=== PATIENT | female | born 1965 | race Caucasian/White ===

== ENCOUNTER 2021-04-25 15:21 | Inpatient (IN) | payer OTHER ==
[~2021-04-25] VITALS: Ht 152.4 cm; Wt 48.3 kg
[~2021-04-25 15:21] MED LIST: ASPIR 8181 MG PO; COSENTYX P150 MG/1 M SC; HYDROCODON-ACE1 EAC2 PO; IMDUR 30MG TABL30 MG PO; LEVOTHYROXINE25 MCG PO; LIPITOR80 MG PO; LOPRESSOR25 MG PO; METHOTREXA25 MG/1 M6 SC; NEURONTIN400 MG PO; NITROSTAT0.4 MG SL; PLAVIX75 MG PO; PROAIR DIGIHAL90 MCG INH; PROTONIX 40MG T40 MG PO; TOPROL XL 25MG25 MG PO; VIIBRYD40 MG PO; ZESTRIL5 MG PO; ZOCOR20 MG PO
[2021-04-25 16:54] LABS: BASOPHIL 0.6 % (0-2); EOSINOPHIL 0.9 % (0-5); HCT 53.6 % (37.0-47.0); HGB 17.7 g/dl (12.5-16.0); LYMPHOCYTE 16.3 % (15-48); MCV 96.9 fL (78.0-100.0); MONOCYTE 10.2 % (0-12); MPV 9.5 fL (6.0-9.5); NEUTROPHIL 71.5 % (41-80); NRBC 0; PLT 340 K/uL (150-400); RBC 5.53 M/uL (4.20-5.40); RDW 14.1 % (11.5-14.0); WBC 17.8 K/uL (4.0-10.5)
[2021-04-25 16:56] LABS: INR 1.02 (0.9-1.2); PROTHROMBIN TIME 12.8 SECONDS (11.8-13.4)
[2021-04-25 16:57] LABS: PTT 24.8 SECONDS (24.4-34.7)
[2021-04-25 17:12] LABS: ALBUMIN 4.1 g/dL (3.4-5.0); BILIRUBIN - TOTAL 0.4 mg/dL (0.2-1.0); BUN/CREAT RATIO (CALC) 20.3 RATIO; CREATININE 0.59 mg/dL (0.51-0.95); GLOBULIN (CALCULATION) 4.4 g/dL; POTASSIUM 3.7 mmol/L (3.5-5.1); TOTAL PROTEIN 8.5 g/dL (6.4-8.2)
[2021-04-25 17:33] LABS: BILIRUBIN 1+ mg/dL (NEGATIVE); BLOOD 1+ Ery/uL (NEGATIVE); COLOR YELLOW (YELLOW); GLUCOSE (U) NORMAL (NORMAL); LEUKOCYTES NEGATIVE Leu/uL (NEGATIVE); NITRITE NEGATIVE (NEGATIVE); PROTEIN TRACE (LOW) mg/dL (NEGATIVE); SPECIFIC GRAVITY 1.025 (1.001-1.030)
[2021-04-25 17:34] LABS: CLARITY SLIGHTLY HAZY (CLEAR)
[2021-04-25 17:42] LABS: LACTIC ACID 0.5 mmol/L (0.4-1.9)
[2021-04-25 17:53] LABS: BACTERIA 1+; MUCOUS MODERATE; URINARY WBC RARE
[2021-04-26 00:36] LABS: LACTIC ACID 0.3 mmol/L (0.4-1.9)
[2021-04-26 06:21] LABS: BASOPHIL 0.7 % (0-2); EOSINOPHIL 1.5 % (0-5); HCT 48.8 % (37.0-47.0); HGB 15.8 g/dl (12.5-16.0); LYMPHOCYTE 28.2 % (15-48); MCH 31.5 pg (25.0-31.0); MCHC 32.4 g/dL (32.0-36.0); MCV 97.2 fL (78.0-100.0); MONOCYTE 10.9 % (0-12); MPV 9.3 fL (6.0-9.5); NEUTROPHIL 58.3 % (41-80); NRBC 0; PLT 280 K/uL (150-400); RBC 5.02 M/uL (4.20-5.40); RDW 14.1 % (11.5-14.0); WBC 15.9 K/uL (4.0-10.5)
[2021-04-26 06:35] LABS: BUN/CREAT RATIO (CALC) 21.5 RATIO; CREATININE 0.65 mg/dL (0.51-0.95); POTASSIUM 3.5 mmol/L (3.5-5.1)
--- NOTE | 2021-04-26 14:38 | NUR ---
04/26/21 Ms. Greer lives at home with her significant other. She is independent in the home and community. - No discharge planning needs are anticipated.
--- NOTE | 2021-04-26 18:07 | NUR ---
PATIENTS BLOOD PRESSURE NOTED TO BE 74/40, RECHECKED EVGENY AT 74/44. NOTIFIED DR. BAKER NEW ORDER TO GIVE 1L NORMAL SALINE BOLUS.
--- NOTE | 2021-04-27 04:28 | NUR ---
ORDER TO BLADDER SCAN D/T FEELING BLOATED. PT SCANNED 32ML RESULTS
[2021-04-27 06:40] LABS: BASOPHIL 0.6 % (0-2); EOSINOPHIL 3.2 % (0-5); HCT 35.7 % (37.0-47.0); HGB 11.5 g/dl (12.5-16.0); LYMPHOCYTE 31.7 % (15-48); MCH 32.2 pg (25.0-31.0); MCHC 32.2 g/dL (32.0-36.0); MONOCYTE 11.7 % (0-12); MPV 9.3 fL (6.0-9.5); NEUTROPHIL 52.5 % (41-80); NRBC 0; PLT 216 K/uL (150-400); RBC 3.57 M/uL (4.20-5.40); RDW 14.3 % (11.5-14.0); WBC 12.3 K/uL (4.0-10.5)
[2021-04-27 06:52] LABS: BUN/CREAT RATIO (CALC) 13.2 RATIO; C-REACTIVE PROTEIN 1.9 mg/dL (<=0.90); CREATININE 0.68 mg/dL (0.51-0.95); POTASSIUM 3.2 mmol/L (3.5-5.1)
[2021-04-28] MEDS ORDERED: CARAFATE1 GM PO (13:17)
[2021-04-28] MEDS ORDERED: PANTOPRAZOLE SO40 MG PO (13:17)
[2021-04-28] MEDS ORDERED: AMOX TR-K CLV1 EAC4 PO (13:17)
== END 2021-04-28 14:00 | disposition home or self-care (01) | DRG 384 ==
LOC: FER 15:21 → FMS 20:14
PROVIDERS: Emergency Medicine; Hospitalist; ADMIT Internal Medicine
DX: K27.9 Peptic ulcer, site unspecified, unspecified as acute or chronic, without hemorrhage or perforation (principal); K86.2 Cyst of pancreas; K29.00 Acute gastritis without bleeding; K29.80 Duodenitis without bleeding; Z20.822 Contact with and (suspected) exposure to COVID-19; I25.10 Atherosclerotic heart disease of native coronary artery without angina pectoris; I10 Essential (primary) hypertension; E78.5 Hyperlipidemia, unspecified; E03.9 Hypothyroidism, unspecified; F41.9 Anxiety disorder, unspecified; G25.81 Restless legs syndrome; I25.2 Old myocardial infarction; Z87.891 Personal history of nicotine dependence; Z88.6 Allergy status to analgesic agent; Z95.5 Presence of coronary angioplasty implant and graft; Z79.02 Long term (current) use of antithrombotics/antiplatelets; Z79.82 Long term (current) use of aspirin; Z79.899 Other long term (current) drug therapy
CPT/HCPCS: 36415; 74022; 76705; 80048; 80053; 81001; 83605; 83690; 84145; 84484; 85025; 85610; 85730; 86140; 87088; 93005; C9113; J1170; J1650; J2270; J2543; J7030; J7040; Q9967; U0002

== ENCOUNTER → 2021-05-03 | Day surgery (SDC) | payer OTHER ==
[~2021-05-03] VITALS: Ht 152.4 cm; Wt 52.4 kg
[~2021-05-03] MED LIST changes: +AMOX TR-K CLV1 EAC4 PO; +CARAFATE1 GM PO; +PANTOPRAZOLE SO40 MG PO; +VITAMIN D21250 MCG PO
== END | disposition home or self-care (01) ==
LOC: FAS 06:12
DX: K29.50 Unspecified chronic gastritis without bleeding (principal); K26.9 Duodenal ulcer, unspecified as acute or chronic, without hemorrhage or perforation; K29.80 Duodenitis without bleeding; I25.10 Atherosclerotic heart disease of native coronary artery without angina pectoris; I10 Essential (primary) hypertension; E78.00 Pure hypercholesterolemia, unspecified; G89.29 Other chronic pain; K86.2 Cyst of pancreas; B96.81 Helicobacter pylori [H. pylori] as the cause of diseases classified elsewhere; K21.9 Gastro-esophageal reflux disease without esophagitis; E03.9 Hypothyroidism, unspecified; M54.50 Low back pain, unspecified; G43.909 Migraine, unspecified, not intractable, without status migrainosus; L40.9 Psoriasis, unspecified; Z87.891 Personal history of nicotine dependence; Z88.6 Allergy status to analgesic agent; Z88.8 Allergy status to other drugs, medicaments and biological substances; Z79.01 Long term (current) use of anticoagulants; Z95.5 Presence of coronary angioplasty implant and graft; Z20.822 Contact with and (suspected) exposure to COVID-19
CPT/HCPCS: J2250; J2704; J7120